=== PATIENT | male | born 1990 | race Caucasian/White ===

== ENCOUNTER 2025-04-23 10:37 | Emergency (ER) | payer SELFPAY ==
[2025-04-23] MEDS: Acetaminophen/HYDROcodone 325-5 MG Tab PO ONE (11:10)
[2025-04-23] MEDS: Lidocaine 1% with EPINEPHrine 1:100,000 20 ML MDV INJECT ONE ×2 (11:17→11:51)
[2025-04-23] MEDS: Lidocaine 1% with EPINEPHrine 1:100,000 20 ML MDV ONE (11:17)
[2025-04-23] MEDS: Acetaminophen/HYDROcodone 325-5 MG Tab ONE (11:18)
[2025-04-23] MEDS: Diphtheria,Pertussis(Acell),Tetanus Vaccine 0.5 ML Syringe IM ONE (11:27)
[2025-04-23] MEDS: Bacitracin/Neomycin/Polymyxin B Oint 0.9 GM U/D Packet ONE ×2 (12:28→12:29)
[2025-04-23] MEDS: Bacitracin/Neomycin/Polymyxin B Oint 0.9 GM U/D Packet TOP ONE (12:28)
== END 2025-04-23 12:16 | disposition home or self-care (01) ==
LOC: KA.ED 10:37
DX: S01.01XA Laceration without foreign body of scalp, initial encounter (principal); F17.200 Nicotine dependence, unspecified, uncomplicated; Z79.899 Other long term (current) drug therapy; Z88.0 Allergy status to penicillin; Z23 Encounter for immunization; W22.8XXA Striking against or struck by other objects, initial encounter; Y92.009 Unspecified place in unspecified non-institutional (private) residence as the place of occurrence of the external cause
CPT/HCPCS: 12004; 90471; 90715; 99282-25; 99283; A9270-GY; J2004